=== PATIENT | male | born 1965 | race Two or more races ===

== ENCOUNTER 2018-08-11 15:15 | Emergency (ER) | payer SELFPAY ==
[~2018-08-11] VITALS: Ht 165.1 cm; Wt 77.1 kg
[2018-08-11 15:36] VITALS: BP 114/70
[2018-08-11] MEDS ORDERED: CHLO15MO2 PO (16:02)
[2018-08-11] MEDS ORDERED: PENI500T PO (16:02)
--- NOTE | 2018-08-11 16:03 | PHYS DOC ---
Past Medical History Past Medical History: Diabetes-Type II, [place] Past Surgical History: Appendectomy, Other Additional Past Surgical Histo: TOE SURGERY Smoking: Cigarettes, 1 Pack Per Day Alcohol Use: None Drug Use: None Adult General Chief Complaint Chief Complaint: EARACHE/EAR PAIN HPI HPI Patient is a 53 year old male who presents to the ER with complaints of pain in front of his right ear for the last 2 weeks. He denies any drainage or bleeding from the ear. Pt also denies any fever, cough, shortness of breath, sore throat, nausea, vomiting, diarrhea, or abdominal pain. Currently, the pain is a 10/10, nothing makes the pain better, palpation of the right preauricular lymph node increases the pain. Review of Systems Review of Systems Constitutional: Denies fever or chills [] Eyes: Denies redness, or eye pain [] HENT: Denies nasal congestion or sore throa; see HPI[] Respiratory: Denies cough or shortness of breath [] Cardiovascular: No additional information not addressed in HPI [] GI: Denies abdominal pain, nausea, vomiting, or diarrhea [] Musculoskeletal: Denies back pain or joint pain [] Integument: Denies rash or skin lesions [] Neurologic: Denies headache, focal weakness or sensory changes [] Allergies Allergies Allergies Coded Allergies Type Severity Reaction Last Updated Verified No Known Drug Allergies 11/17/14 No Physical Exam Physical Exam Constitutional: Well developed, well nourished, no acute distress, non-toxic appearance, obese. [] HENT: Normocephalic, atraumatic, bilateral external ears normal, bilateral TMs normal, oropharynx moist, no oral exudates, nose normal; R preauricular lymph node enlargement with tenderness to palpation; tooth #1 broken with gingival erythema, edema, and tenderness to palpation Eyes: conjunctiva normal, no discharge. [] Neck: Normal range of motion, supple, no stridor. [] Cardiovascular:Heart rate regular rhythm, no murmur [] Lungs & Thorax: Bilateral breath sounds clear to auscultation [] Skin: Warm, dry, no erythema, no rash. [] Extremities: No cyanosis, ROM intact Neurologic: Alert and oriented X 3, normal motor function, normal sensory function, no focal deficits noted. [] Psychologic: Affect normal, judgement normal, mood normal. [] Current Patient Data Vital Signs Vital Signs Date Time Temp Pulse Resp B/P (MAP) Pulse Ox O2 Delivery O2 Flow Rate FiO2 08/11/18 15:36 98.2 73 18 114/70 (85) 97 Room Air 98.2 EKG EKG [] Radiology/Procedures Radiology/Procedures [] Course & Med Decision Making Course & Med Decision Making Pertinent Labs and Imaging studies reviewed. (See chart for details) [] Dragon Disclaimer Dragon Disclaimer This electronic medical record was generated, in whole or in part, using a voice recognition dictation system. Departure Departure Impression: Primary Impression: Infected dental caries Additional Impressions: Gingivitis Preauricular adenopathy Disposition: HOME, SELF-CARE Condition: STABLE Referrals: NO PCP (PCP) Patient Instructions: Dental Caries-Brief Additional Instructions: Fill prescriptions and use as directed. Follow up with dentist using the referral list provided. Return to the ER if symptoms worsen. Scripts Chlorhexidine Gluconate (PERIDEX) 15 Ml Mouthwash 15 ML PO BID, #473 ML 0 Refills rinse with for 30 seconds after brushing your teeth twice daily and spit out. Prov: SHARAN CORTEZ [employer] 08/11/18 Penicillin V Potassium (PENICILLIN V POTASSIUM) 500 Mg Tablet 1 TAB PO QID for 10 Days, #40 TAB 0 Refills Prov: SHARAN CORTEZ [employer] 08/11/18 Problem Qualifiers SHARAN CORTEZ APRN Aug 11, 2018 16:03
== END 2018-08-11 16:24 | disposition home or self-care (01) ==
LOC: ER 15:15
DX: K02.9 Dental caries, unspecified (principal); K05.10 Chronic gingivitis, plaque induced; R59.0 Localized enlarged lymph nodes; H92.01 Otalgia, right ear; E11.9 Type 2 diabetes mellitus without complications; I25.2 Old myocardial infarction; F17.210 Nicotine dependence, cigarettes, uncomplicated; Z90.89 Acquired absence of other organs
CPT/HCPCS: 99283